=== PATIENT | male | born 1990 | race Caucasian/White ===

== ENCOUNTER 2021-02-23 08:01 | Outpatient (REF) | payer MEDICAID, SELFPAY | END 2021-02-23 08:02 | disposition home or self-care (01) | LOC: HO.LAB 08:01 | PROVIDERS: Visit Provider Internal Medicine | DX: Z20.822 Contact with and (suspected) exposure to COVID-19 (principal) | CPT/HCPCS: 36415; C9803; U0003; U0005 ==